=== PATIENT | male | born 1975 | race Caucasian/White ===

== ENCOUNTER 2019-04-17 16:25 | Emergency (ER) | payer SELFPAY ==
[2019-04-17] MEDS ORDERED: BESIFLOXACIN HCL 0.6% OPH SUSP 5 ML BOTTLE OD ONE (16:46)
[2019-04-17 16:55] VITALS: BP 168/104
--- NOTE | 2019-04-17 16:55 | ER Document Report ---
ED Eye Complaint - General Chief Complaint: Eye Injury Stated Complaint: RIGHT EYE INJURY Time Seen by Provider: 04/17/19 16:41 Primary Care Provider: AMANDA GONZALEZ DO [ACTIVE STAFF] - Follow up as needed JOSÉ MANUEL ELLIOTT [NO LOCAL MD] - Follow up as needed Mode of Arrival: Ambulatory Information source: Patient Notes: 43-year-old male presented to ED for complaint of losing his sight today. He states he got injured on Sunday and was using eyedrops and irrigating his eye. He states it got much worse each day. He states he ran out of the eyedrops and now he has no lesion in the right eye. There is a large ulcer and cloudiness across the eye. He also has elevated blood pressure at this time. Blood pressure is 161/103 he does not take medications for this. O2 sat is 96 heart rate is 74 temperature is 97.5 and respirations are 18. He states he has no lesion to this eye. TRAVEL OUTSIDE OF THE [place] IN LAST 30 DAYS: No - Related Data Allergies/Adverse Reactions: No Known Allergies Allergy (Verified 04/17/19 16:27) Past Medical History - General Information source: Patient - Social History Smoking Status: Never Smoker Chew tobacco use (# tins/day): No Frequency of alcohol use: Heavy Drug Abuse: None Lives with: Alone Family History: Reviewed & Not Pertinent Patient has suicidal ideation: No Patient has homicidal ideation: No - Past Medical History Cardiac Medical History: Reports: Hx Hypertension Pulmonary Medical History: Reports: None EENT Medical History: Reports: None Neurological Medical History: Reports: None Endocrine Medical History: Reports: None Renal/ Medical History: Reports: None Malignancy Medical History: Reports None GI Medical History: Reports: None Musculoskeletal Medical History: Reports None Skin Medical History: Reports None Psychiatric Medical History: Reports: None Traumatic Medical History: Reports: None Infectious Medical History: Reports: None Surgical Hx: Negative Past Surgical History: Reports: None - Immunizations Hx Diphtheria, Pertussis, Tetanus Vaccination: No Review of Systems - Review of Systems Constitutional: No symptoms reported EENT: Eye pain - No vision in the right eye, draining purulent fluid, sawdust in the eye. He did not remove his contact Cardiovascular: No symptoms reported Respiratory: No symptoms reported Gastrointestinal: No symptoms reported Genitourinary: No symptoms reported Male Genitourinary: No symptoms reported Musculoskeletal: No symptoms reported Skin: No symptoms reported Hematologic/Lymphatic: No symptoms reported Neurological/Psychological: No symptoms reported Physical Exam - Vital signs Vitals: Temp Pulse Resp BP Pulse Ox 97.5 F 87 18 161/103 H 94 04/17/19 16:33 04/17/19 16:33 04/17/19 16:33 04/17/19 16:33 04/17/19 16:33 Interpretation: Hypertensive - General General appearance: Appears well, Alert - HEENT Head: Normocephalic, Atraumatic Eyes: Normal Conjunctiva: Purulent discharge Cornea: Corneal ulcer, Opacified Extraocular movements intact: No - Not to the right eye Eyelashes: Matted Pupils: PERRL Ears: Normal External canal: Normal Tympanic membrane: Normal Sinus: Normal Nasal: Normal Mouth/Lips: Normal Mucous membranes: Normal Pharynx: Normal Neck: Normal - Respiratory Respiratory status: No respiratory distress Chest status: Nontender Breath sounds: Normal Chest palpation: Normal - Cardiovascular Rhythm: Regular Heart sounds: Normal auscultation Murmur: No - Abdominal Inspection: Normal Distension: No distension Bowel sounds: Normal Tenderness: Nontender Organomegaly: No organomegaly - Back Back: Normal, Nontender - Extremities General upper extremity: Normal inspection, Nontender, Normal color, Normal ROM, Normal temperature General lower extremity: Normal inspection, Nontender, Normal color, Normal ROM, Normal temperature, Normal weight bearing. No: Nida's sign - Neurological Neuro grossly intact: Yes Cognition: Normal Orientation: AAOx4 Pawel Coma Scale Eye Opening: Spontaneous Pawel Coma Scale Verbal: Oriented Pawel Coma Scale Motor: Obeys Commands Pawel Coma Scale Total: 15 Speech: Normal Motor strength normal: LUE, RUE, LLE, RLE Sensory: Normal - Psychological Associated symptoms: Normal affect, Normal mood - Skin Skin Temperature: Warm Skin Moisture: Dry Skin Color: Normal Course - Vital Signs Vital signs: Temp Pulse Resp BP Pulse Ox 97.7 F 80 18 168/104 H 97 04/17/19 16:51 04/17/19 16:51 04/17/19 16:51 04/17/19 16:51 04/17/19 16:51 - Consults [place] Time consulted: 17:00 Reason for consultation: 04/17/19 17:08 Ulceration to the eye completely clouded over purulent drainage from the eye no vision to the eye he recommended. Besivance eyedrops and get to his office in [place]. Patient was given instructions for getting to the office in [place] Consulted provider: follow-up in office - Will see in office as soon as he can get to the office Discharge - Discharge Clinical Impression: Infection of right eye Condition: Stable Disposition: HOME, SELF-CARE Additional Instructions: Corneal Ulceration You have an infection on the surface of the clear part of the eye. This is called a corneal ulceration. It often occurs at the site of a foreign particle, or underneath a contact lens. With treatment, the ulceration should heal, but it's important that you follow the instructions to prevent complications. The treatment of an ulceration is antibiotic applied to the eye. Sometimes, an eye shield is applied. Pain medicine may be required. The pupil may be dilated with medication to decrease pain and prevent complications. Follow-up examination is important. If you wear contacts, don't re-insert your contact lens until the physician has examined your eye to determine that healing is complete. Lenses should be brought in for inspection. Call the doctor or return at once if you develop eye swelling, decreasing vision, severe pain, or fever. EYEDROP USE: Eyedrops are most easily applied by pulling down on the cheek just below the lower eyelid. The lower lid will pop out to form a pouch into which you can drop the medicine. A small brief sting is not unusual, especially if the eye is reddened and irritated already. Use the drops exactly as recommended. You should see the doctor at once if there is a decrease in vision, swelling of the eye, or an increase in discomfort. ANTIBIOTIC THERAPY: You have been given an antibiotic prescription. It's important that you take all the medication, unless instructed otherwise by your physician. Failure to complete the entire course can result in relapse of your condition. Common side effects of antibiotics include nausea, intestinal cramping, or diarrhea. Women may develop vaginal yeast infections, and babies can get yeast (thrush) in the mouth following the use of antibiotics. Contact your physician if you develop significant side effects from this medication. Allergy to this antibiotic can result in hives, wheezing, faintness, or itching. If symptoms of allergy occur, stop the medication and call the doctor. FOLLOW-UP CARE: Please go straight to eye care in [place] you will see a Dr. Gonzalez. Eye care is on your right when you are leaving [facility] on . Please go straight from the emergency room to his office. Forms: Elevated Blood Pressure, Smoking Cessation Education, Return to Work Referrals: AMANDA GONZALEZ, [ACTIVE STAFF] - Follow up as needed LOCAL,NO [NO LOCAL MD] - Follow up as needed
== END 2019-04-17 17:05 | disposition home or self-care (01) ==
LOC: ER 16:25
DX: H44.001 Unspecified purulent endophthalmitis, right eye (principal); R03.0 Elevated blood-pressure reading, without diagnosis of hypertension
CPT/HCPCS: 99283

== ENCOUNTER 2019-09-03 11:32 | Emergency (ER) | payer OTHER ==
--- NOTE | 2019-09-03 12:33 | ER Document Report ---
ED Medical Screen (RME) - General Chief Complaint: Abdominal Pain Stated Complaint: STOMACH PAIN/DIZZINESS Time Seen by Provider: 09/03/19 12:29 Mode of Arrival: Ambulatory Information source: Patient Notes: 43-year-old male presented to ED for complaint of abdominal pain and dizziness. He states his abdominal pain is just above his umbilicus but he has no nausea vomiting or diarrhea. He denies any fevers. He states he is very dizzy when he is moving but it is he is not feeling it right now. He states the abdominal pain is better at this time 2. We will get blood and urine and evaluate what is going on with him. I have greeted and performed a rapid initial assessment of this patient. A comprehensive ED assessment and evaluation of the patient, analysis of test results and completion of medical decision making process will be conducted by an additional ED providers. TRAVEL OUTSIDE OF THE [place] 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 Lives with: Alone Family history: Reviewed & Not Pertinent - Past Medical History Cardiac Medical History: Reports: Hx Hypertension Pulmonary Medical History: Reports: None EENT Medical History: Reports: None Neurological Medical History: Reports: None Endocrine Medical History: Reports: None Renal/ Medical History: Reports: Hx Kidney Stones Malignancy Medical History: Reports None GI Medical History: Reports: None Musculoskeltal Medical History: Reports None Skin Medical History: Reports None Psychiatric Medical History: Reports: None Traumatic Medical History: Reports: None Infectious Medical History: Reports: None Surgical Hx: Negative Past Surgical History: Reports: None - Immunizations Hx Diphtheria, Pertussis, Tetanus Vaccination: No History of Pneumococcal Vaccine: No History of Influenza Vaccine for 05/2019 - 10/2019 Season: No Physical Exam - Vital signs Vitals: Temp Pulse Resp BP Pulse Ox 98.2 F 99 16 161/93 H 99 09/03/19 11:37 09/03/19 11:37 09/03/19 11:37 09/03/19 11:37 09/03/19 11:37 Course - Vital Signs Vital signs: Temp Pulse Resp BP Pulse Ox 98.2 F 99 16 161/93 H 99 09/03/19 11:37 09/03/19 11:37 09/03/19 11:37 09/03/19 11:37 09/03/19 11:37
[2019-09-03] MEDS ORDERED: NORMAL SALINE 1000 ML 1,000 ML IV ONE (12:34)
[2019-09-03 13:27] LABS: APPEARANCE,URINE SLIGHTLY-CLOUDY; BILIRUBIN,URINE NEGATIVE (NEGATIVE); COLOR,URINE YELLOW; GLUCOSE, URINE NEGATIVE (NEGATIVE); KETONES,URINE 80 mg/dL (NEGATIVE); PROTEIN,URINE 100 mg/dL (NEGATIVE); UROBILINOGEN,URINE NEGATIVE mg/dL (<2.0)
[2019-09-03 13:38] LABS: ABSOLUTE EOSINOPHILS # (AUTO) 0.1 10^3/uL (0.0-0.6); ABSOLUTE LYMPHOCYTES (AUTO) 1.2 10^3/uL (0.5-4.7); ABSOLUTE MONOCYTES (AUTO) 0.3 10^3/uL (0.1-1.4); ABSOLUTE NEUT (AUTO) 4.8 10^3/uL (1.7-8.2); BASOPHILS % (AUTO) 0.5 % (0-2); EOSINOPHILS % (AUTO) 1.1 % (0-6); HEMATOCRIT 45.2 % (37.9-51.0); HEMOGLOBIN 15.5 g/dL (13.5-17.0); LYMPHOCYTES % (AUTO) 18.9 % (13-45); MEAN CORPUSCULAR HEMOGLOBIN 31.4 pg (27.0-33.4); MEAN CORPUSCULAR HGB CONC 34.3 g/dL (32.0-36.0); MEAN CORPUSCULAR VOLUME 92 fl (80-97); MONOCYTES % (AUTO) 5.4 % (3-13); PLATELET COUNT 177 10^3/uL (150-450); RED BLOOD COUNT 4.93 10^6/uL (4.35-5.55); RED CELL DISTRIBUTION WIDTH 13.4 % (11.5-14.0); SEGMENTED NEUTROPHILS % (AUTO) 74.1 % (42-78); TOTAL CELLS COUNTED % (AUTO) 100 %; WHITE BLOOD COUNT 6.4 10^3/uL (4.0-10.5)
[2019-09-03 13:48] LABS: ALBUMIN 4.7 g/dL (3.5-5.0); ALKALINE PHOSPHATASE 144 U/L (38-126); ANION GAP 16 (5-19); ASPARTATE AMINO TRANSFERASE 61 U/L (17-59); BILIRUBIN,DIRECT 0.3 mg/dL (0.0-0.4); BILIRUBIN,TOTAL 0.7 mg/dL (0.2-1.3); BLOOD UREA NITROGEN 14 mg/dL (7-20); CALCIUM 9.3 mg/dL (8.4-10.2); CARBON DIOXIDE 25 mmol/L (22-30); CHLORIDE 97 mmol/L (98-107); POTASSIUM 4.8 mmol/L (3.6-5.0)
[2019-09-03 13:50] LABS: GLUCOSE 69 mg/dL (75-110)
[2019-09-03] MEDS ORDERED: DEXTROSE 5%-1/2 NORMAL SALINE 500 ML IV ONE (13:52)
--- NOTE | 2019-09-03 14:55 | RADIOLOGY REPORT (SQ) ---
EXAM DESCRIPTION: CT ABD/PELVIS NO ORAL OR IV COMPLETED DATE/TIME: 09/03/2019 2:33 pm REASON FOR STUDY: abd. pain and hematuria COMPARISON: None. TECHNIQUE: CT scan of the abdomen and pelvis performed without intravenous or oral contrast. Images reviewed with lung, soft tissue, and bone windows. Reconstructed coronal and sagittal MPR images revi ewed. All images stored on PACS. All CT scanners at this facility use dose modulation, iterative reconstruction, and/or weight based d osing when appropriate to reduce radiation dose to as low as reasonably achievable (ALARA). [facility]: Dose Right [facility]: CareDose [facility]: Dose Right [facility]: Teradose 4D [facility]: [employer] RADIATION DOSE: CT Rad equipment meets quality standard of care and radiation dose reduction techniq ues were employed. CTDIvol: 11.2 mGy. DLP: 668 mGy-cm.mGy. LIMITATIONS: None. FINDINGS: LOWER CHEST: No significant findings. No nodules or infiltrates. NON-CONTRASTED LIVER, SPLEEN, ADRENALS: Evaluation limited by lack of IV contrast. No identified sign ificant masses. Hepatic steatosis. PANCREAS: No masses. No peripancreatic inflammatory changes. GALLBLADDER: No identified stones by CT criteria. No inflammatory changes to suggest cholecystitis. RIGHT KIDNEY AND URETER: Atrophic right kidney with a obstructing stone at the ureterovesicular junct ion measuring 11 mm (Hounsfield units over 1,000). There is associated hydroureteronephrosis. No di screte renal mass although evaluation limited without intravenous contrast. LEFT KIDNEY AND URETER: No suspicious masses. Assessment limited by lack of IV contrast. No signifi cant calcifications. No hydronephrosis or hydroureter. AORTA AND RETROPERITONEUM: No aneurysm. No retroperitoneal masses or adenopathy. BOWEL AND PERITONEAL CAVITY: No obvious masses or inflammatory changes. No free fluid. APPENDIX: Normal. PELVIS, BLADDER, AND ABDOMINAL WALL:Decompressed urinary bladder. 11 mm stone at the ureterovesicula r junction. Fat containing umbilical hernia with a 16 mm aperture. BONES: No acute bony abnormality. No suspicious lytic or blastic osseous lesions. OTHER: No other significant finding. IMPRESSION: 1. Asymmetrically small right kidney with a 11 mm stone at the ureteral vesicular junct ion and associated hydroureteronephrosis. Recommend urology consult. 2. Hepatic steatosis. 3. Fat containing periumbilical hernia. COMMENT: Quality ID # [id number]: Final reports with documentation of one or more dose reduction techniques (e.g., Automated exposure control, adjustment of the mA and/or kV according to patient size, use of iterative reconstruction technique) TECHNICAL DOCUMENTATION: JOB ID: [id number] [employer]- All Rights Reserved Reading location - IP/workstation name: [email or web address]
[2019-09-03] MEDS ORDERED: CEFTRIAXONE 1 GM/D5W RTU 1 GM/50 ML RTUPB IV ONE (15:36)
--- NOTE | 2019-09-03 15:52 | ER Document Report ---
ED General - General Chief Complaint: Abdominal Pain Stated Complaint: STOMACH PAIN/DIZZINESS Time Seen by Provider: 09/03/19 12:29 Mode of Arrival: Ambulatory TRAVEL OUTSIDE OF THE [place] IN LAST 30 DAYS: No - HPI Notes: Mr. Thompson is a 43-year-old male presenting with a chief complaint of abdominal pain with associated nausea without vomiting. This began this morning while he was at work. He also notes that he has a "knot" in the area of his umbilicus. He just noticed this today. He denies trauma. He denies fever or chills. He denies respiratory symptoms. He denies chest pain. He denies dysuria or hematuria. Patient says he drinks "about 10 beers a day". Denies medications. Denies allergies. Denies prior hospitalizations or surgery. 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 Lives with: Alone Family History: Reviewed & Not Pertinent Patient has suicidal ideation: No Patient has homicidal ideation: No - Past Medical History Cardiac Medical History: Reports: Hx Hypertension Pulmonary Medical History: Reports: None EENT Medical History: Reports: None Neurological Medical History: Reports: None Endocrine Medical History: Reports: None Renal/ Medical History: Reports: Hx Kidney Stones Malignancy Medical History: Reports None GI Medical History: Reports: None Musculoskeletal Medical History: Reports None Skin Medical History: Reports None Psychiatric Medical History: Reports: None Traumatic Medical History: Reports: None Infectious Medical History: Reports: None Surgical Hx: Negative Past Surgical History: Reports: None - Immunizations Hx Diphtheria, Pertussis, Tetanus Vaccination: No History of Pneumococcal Vaccine: No Review of Systems - Review of Systems Notes: Constitutional: Negative for fever. HENT: Negative for sore throat. Eyes: Negative for visual changes. Cardiovascular: Negative for chest pain. Respiratory: Negative for shortness of breath. Gastrointestinal: As per HPI. Genitourinary: Negative for dysuria. Musculoskeletal: Negative for back pain. Skin: Negative for rash. Neurological: Negative for headaches, weakness or numbness. 10 point ROS negative except as marked above and in HPI. Physical Exam - Vital signs Vitals: Temp Pulse Resp BP Pulse Ox 98.2 F 99 16 161/93 H 99 09/03/19 11:37 09/03/19 11:37 09/03/19 11:37 09/03/19 11:37 09/03/19 11:37 - Notes Notes: GENERAL: Well-developed well-nourished appearing in no acute distress. SKIN: Good turgor no rashes. HEAD: Normocephalic atraumatic. EYES: PERRLA. EOMI. Conjunctivae and sclerae clear. EARS: CANALS AND TMS CLEAR. NOSE: CLEAR. MOUTH: Moist mucosa. Good dentition. No stridor or edema. No drooling. NECK: Supple. No masses or thyromegaly. No adenopathy. Carotids 2+ without bruits. No JVD. BACK: Symmetrical without tenderness. CHEST: Respirations unlabored. Breath sounds clear and symmetrical. HEART: Regular rhythm. No murmur gallop or rub. ABDOMEN: Patient has a 2.0 cm area of induration and tenderness in the upper edge of the umbilicus. There is no redness or warmth associated with this. Soft without masses, organomegaly or rebound. Bowel sounds normally active. No bruits. GENITALIA: Deferred. EXTREMITIES: No edema. No calf tenderness. Cap refill less than 1.5 seconds. Dorsalis pedis and posterior tibial pulses 3+ and symmetrical. NEUROLOGICAL: GCS 15. Alert and oriented x3. Normal gait. Fluent speech. Cranial nerves II through XII intact. Sensorimotor and cerebellar normal. Normal tone. PSYCHIATRIC: Appropriate affect. Course - Re-evaluation Re-evalutation: 09/03/19 15:50 Urinalysis shows hematuria and pyuria. Patient's peripheral white count is normal. LFTs are mildly abnormal consistent with chronic alcohol abuse and fatty infiltration of liver. Urine specimen cultured. IV Rocephin. Appears stable for outpatient follow-up with urology and will make an appropriate referral. Patient strongly advised to moderate his alcohol intake and follow-up with his primary care doctor. He has a minimally symptomatic fat-containing hernia at the umbilicus. This does not appear to warrant any immediate surgical attention but he is made aware of his condition and instructed to follow-up with his primary care physician and consider consultation with surgeon if his symptoms progress. He notes he has been on a diet and is lost about 50 pounds within the last 12 months. Further weight loss would probably be beneficial in this regard and he is so advised. - Vital Signs Vital signs: Temp Pulse Resp BP Pulse Ox 98.2 F 99 16 161/93 H 99 09/03/19 11:37 09/03/19 11:37 09/03/19 11:37 09/03/19 11:37 09/03/19 11:37 - Laboratory Result Diagrams: 09/03/19 13:12 09/03/19 13:12 Laboratory results interpreted by me: 09/03/19 09/03/19 13:12 13:12 Chloride 97 L Glucose 69 L AST 61 H Alkaline Phosphatase 144 H Urine Protein 100 H Urine Ketones 80 H Urine Nitrite (Reflex) POSITIVE H Leukocyte Esterase Rfl LARGE H Urine Ascorbic Acid 40 H - Diagnostic Test Radiology reviewed: Reports reviewed - CT abdomen/pelvis without contrast read by radiologist demonstrating the following abnormalities: 11 mm stone right UVJ, small fat-containing hernia of the superior aspect of the umbilicus, prominent fatty infiltration of liver. Discharge - Discharge Clinical Impression: Ureterolithiasis, Fat herniation umbilicus, Fatty infiltration of liver, Alcohol abuse Condition: Stable Disposition: HOME, SELF-CARE Additional Instructions: Kidney Stone You are passing or have passed a kidney stone. These stones are usually due to increased calcium or uric acid concentrations in your urine. Stones within the kidney itself are not painful. The pain occurs as the stone leaves the kidney to pass down the long tube, called the ureter, leading to the bladder. If the stone is small, it will usually pass by itself. Most patients can pass the stone at home. You will usually receive medications for pain, nausea or vomiting, and sometimes a medication to assist in passing the kidney stone. However, if the pain is very severe or if vomiting prevents you from taking oral pain medications, you may need to return for further treatment. Drink three or four quarts of fluids per day. You will be given pain medication (if needed) and urine strainers. Strain all your urine to see if the stone passes. If your doctor has asked you to bring the stone in for analysis, return with the stone once it has passed. Return if pain or vomiting become severe, if you develop a high fever, if you are unable to pass your urine, or if other unusual symptoms occur. Increase oral fluids You will be provided a work note for 3 days You will be provided name/telephone number for urologist for follow-up. You should see them within the next 48 hours. Return here as needed for new or worsening symptoms: Pain that is worsening or unimproved Uncontrolled vomiting High fever or shaking chills Overall worsening Prescriptions: Ketorolac Tromethamine [Toradol 10 mg Tablet] 10 mg PO Q6HP PRN 10 Days #20 tablet PRN Reason: Tamsulosin HCl [Flomax 0.4 mg Cap.sr] 0.4 mg PO DAILY #7 cap.sr.24h Cephalexin Monohydrate [Keflex 500 mg Capsule] 500 mg PO Q6H 10 Days #40 capsule Ondansetron [Zofran Odt 4 mg Tablet] 1 - 2 tab PO Q4H PRN #15 tab.rapdis PRN Reason: For Nausea/Vomiting Forms: Return to Work Referrals: SAMEER NAVARRO MD [NO LOCAL MD] - Follow up as needed
[2019-09-03 16:48] VITALS: BP 171/83
== END 2019-09-03 17:16 | disposition home or self-care (01) ==
LOC: ER 11:32
DX: N20.1 Calculus of ureter (principal); K42.9 Umbilical hernia without obstruction or gangrene; K76.0 Fatty (change of) liver, not elsewhere classified; F10.10 Alcohol abuse, uncomplicated; R10.9 Unspecified abdominal pain; R42 Dizziness and giddiness; R11.0 Nausea
CPT/HCPCS: 99284; 96365; 36415; 87086; 83690; 85025; 87088; 80053; 81001; 87186; 74176; J7070; J0696